=== PATIENT | female | born 2000 | race Caucasian/White ===

== ENCOUNTER 2020-08-23 12:23 | Emergency (ER) | payer OTHER ==
[~2020-08-23 12:23] MED LIST: IBUPROFEN600 MG PO; ZOFRAN4 MG PO
[2020-08-23 13:38] LABS: RED BLOOD COUNT 5.14 M/UL (4.00-5.10); WHITE BLOOD COUNT 8.8 K/UL (4.5-11.0)
[2020-08-23 14:07] LABS: BUN/CREATININE RATIO 19 (0-10)
[2020-08-23] MEDS ORDERED: KEPPRA500 MG PO (16:04)
== END 2020-08-23 17:24 | disposition home or self-care (01) ==
LOC: ER1 12:23
PROVIDERS: Family Medicine
DX: R56.9 Unspecified convulsions (principal); Z88.0 Allergy status to penicillin; Z88.1 Allergy status to other antibiotic agents; Z88.8 Allergy status to other drugs, medicaments and biological substances; Z86.19 Personal history of other infectious and parasitic diseases
CPT/HCPCS: 70450; 70486; 71045; 72125; 73610; 73630; 80053; 81001; 82550; 82553; 83874; 84484; 85025; 96374; 99284; J2405

== ENCOUNTER 2021-12-12 12:28 | Emergency (ER) | payer OTHER ==
[~2021-12-12 12:28] MED LIST changes: +KEPPRA500 MG PO
== END 2021-12-12 15:03 | disposition home or self-care (01) ==
LOC: ER1 12:28
DX: R51.9 Headache, unspecified (principal)
CPT/HCPCS: 70450; 99284